=== PATIENT | female | born 1945 | race Asian ===

== ENCOUNTER 2019-06-10 06:01 | Day surgery (SDC) | payer OTHER ==
[~2019-06-10] VITALS: Ht 154.9 cm; Wt 70.9 kg
[~2019-06-10 06:01] MED LIST: SODIUM CHLORIDE 0.9% 1,000 ML ONE
[2019-06-10] MEDS ORDERED: LIDOCAINE 2% 30 ML JELLY TP ONE (06:02)
[2019-06-10] MEDS ORDERED: LIDOCAINE 4% 50 ML SOLUTION TP ONE (06:02)
[2019-06-10] MEDS ORDERED: BENZOCAINE 20% 50 MCG/SPRAY 57 GM TP ONE (06:02)
[2019-06-10] MEDS ORDERED: ALBUTEROL SULFATE 2.5 MG/0.5 ML NEB SOLUTION NEB ONE (06:02)
[2019-06-10] MEDS ORDERED: SODIUM CHLORIDE 0.9% 1,000 ML IV ONE (06:30)
[2019-06-10 07:15] LABS: GLUCOMETER DEV NAME(LOC) SDS.; GLUCOSE,POINT OF CARE 126 MG/DL (70-110)
[2019-06-10] MEDS ORDERED: MIDAZOLAM HCL 2 MG/2 ML VIAL ONE (07:38)
[2019-06-10] MEDS ORDERED: FentaNYL CITRATE-PF 100 MCG/2 ML VIAL ONE (07:38)
[2019-06-10] MEDS ORDERED: MethylPREDNISolone SOD SUCC 125 MG/2 ML VIAL ONE (08:27)
[2019-06-10] MEDS ORDERED: MethylPREDNISolone SOD SUCC 125 MG/2 ML VIAL IVP ONE (08:45)
[2019-06-10] MEDS ORDERED: OXYGEN THERAPY IH SCH (20:00)
== END 2019-06-10 10:10 | disposition home or self-care (01) ==
LOC: SURGERY 06:01
PROVIDERS: ATTEND Internal Medicine Critical Care Medicine
DX: R05 Cough (principal); J98.8 Other specified respiratory disorders; J34.89 Other specified disorders of nose and nasal sinuses; J98.4 Other disorders of lung; J38.4 Edema of larynx; B37.0 Candidal stomatitis; E11.9 Type 2 diabetes mellitus without complications; I10 Essential (primary) hypertension; E78.00 Pure hypercholesterolemia, unspecified; J45.909 Unspecified asthma, uncomplicated; Z98.890 Other specified postprocedural states; R19.00 Intra-abdominal and pelvic swelling, mass and lump, unspecified site
CPT/HCPCS: 31623; 31624; 71045; 82962; 87015; 87070; 87101; 87205; 87206; 87220; 88108; 88184; 88185; 88312; 93005; J2250; J2930; J3010; J7030